=== PATIENT | male | born 1990 ===

== ENCOUNTER 2024-03-28 09:34 | Emergency (ER) | payer BC ==
--- NOTE | 2024-03-28 09:44 | ERPHSYRPT ---
- History of Present Illness Time Seen by Provider: 03/28/24 09:44 Historian: patient, family Exam Limitations: no limitations Physician History: This is a 33-year-old white male patient who began having symptoms of right flank pain and pain into his right lower quadrant 6 days ago. He was seen in the outpatient walk-in clinic where there was blood in his urine. He was placed on Bactrim DS and told to follow-up with the urologist if symptoms have not improved. This morning, his right flank pain and pain has now traveled into his right groin. He had nausea and a single episode of vomiting. Patient has had a history of ureterolithiasis in the past. Patient denies chest pain. Patient denies shortness of breath. Patient does not have diarrhea. He denies cough Timing/Duration: day(s) (6), worse Activities at Onset: none Quality: aching Abdominal Pain Onset Location: flank (Right) Pain Radiation: groin (Right flank right groin) Severity of Pain-Max: moderate Severity of Pain-Current: moderate Modifying Factors: Improves With: vomiting (Once in the emergency department) Associated Symptoms: loss of appetite, nausea, vomiting (In the emergency department) Previous symptoms: same symptoms as today, recently seen, recently treated Home Medications: Duloxetine HCl 20 mg PO DAILY 03/28/24 [History] Travel Risk - International Travel Have you traveled outside of the country in past 3 weeks: No - Emerging Infectious Disease Are you exhibiting symptoms associated with any current EIDs: No - Review of Systems Constitutional: No Symptoms Eyes: No Symptoms Ears, Nose, & Throat: No Symptoms Respiratory: No Symptoms Cardiac: No Symptoms Abdominal/Gastrointestinal: Nausea, Vomiting Genitourinary Symptoms: Flank Pain (Right flank pain) Musculoskeletal: No Symptoms Skin: No Symptoms Neurological: No Symptoms Psychological: No Symptoms Endocrine: No Symptoms Hematologic/Lymphatic: No Symptoms Immunological/Allergic: No Symptoms All Other Systems: Reviewed and Negative - Past Medical History Pertinent Past Medical History: Yes - Past Surgical History Past Surgical History: Yes - Nursing Vital Signs Nursing Vital Signs: Initial Vital Signs Temperature 98.1 F 03/28/24 09:59 Pulse Rate 69 03/28/24 09:59 Respiratory Rate 16 03/28/24 09:59 O2 Sat by Pulse Oximetry 100 03/28/24 09:59 Pain Scale Pain Intensity 3 - Physical Exam General Appearance: mild distress, alert, anxiety, thin Eye Exam: PERRL/EOMI Ears, Nose, Throat Exam: normal ENT inspection, moist mucous membranes Neck Exam: normal inspection, non-tender, supple, full range of motion Respiratory Exam: normal breath sounds, lungs clear, airway intact, No chest tenderness, No respiratory distress Cardiovascular Exam: regular rate/rhythm, normal heart sounds, normal peripheral pulses Gastrointestinal/Abdomen Exam: soft, normal bowel sounds, No tenderness Rectal Exam: not done Back Exam: normal inspection, normal range of motion, No CVA tenderness, No vertebral tenderness Extremity Exam: normal inspection, normal range of motion, pelvis stable Neurologic Exam: alert, oriented x 3, cooperative, clinical informatics manager II-XII nml as tested, nml cerebellar function, nml station & gait, sensation nml Skin Exam: normal color, warm, dry Lymphatic Exam: No adenopathy SpO2 Interpretation: normal O2 Delivery: Room Air - Course Nursing assessment & vital signs reviewed: Yes Ordered Tests: Active Orders 24 hr Category Date Time Status IV Insertion STAT Care 03/28/24 10:19 Active ABDOMEN AND PELVIS W/0 CONTRAS [CT] Stat Exams 03/28/24 10:20 Completed AMYLASE Stat Lab 03/28/24 10:20 Completed CBC W DIFF Stat Lab 03/28/24 10:20 Completed CMP Stat Lab 03/28/24 10:20 Completed CULTURE,URINE Stat Lab 03/28/24 11:35 Received LIPASE Stat Lab 03/28/24 10:20 Completed UA W/RFX UR CULTURE Stat Lab 03/28/24 11:35 Completed Medication Summary Discontinued Medications Generic Name Dose Route Start Last Admin Trade Name Lucila PRN Reason Stop Dose Admin Hydromorphone HCl 1 mg 03/28/24 10:19 03/28/24 10:34 Hydromorphone 1 Mg/1ml Inj IV 03/28/24 10:20 1 mg STAT ONE Administration Hydromorphone HCl Confirm 03/28/24 10:30 Hydromorphone 1 Mg/1ml Inj Administered 03/28/24 10:31 Dose 1 mg .ROUTE .STK-MED ONE Sodium Chloride 1,000 mls @ 999 mls/hr 03/28/24 10:19 03/28/24 11:40 Sodium Chloride 0.9% 1000 Ml IV 03/28/24 11:19 Infused .Q1H1M STA Infusion Sodium Chloride Confirm 03/28/24 10:30 Sodium Chloride 0.9% 1000 Ml Administered 03/28/24 10:31 Dose 1,000 mls @ ud .ROUTE .STK-MED ONE Ketorolac Tromethamine 30 mg 03/28/24 10:19 03/28/24 10:35 Ketorolac Tromethamine 30 Mg/Ml Inj IV 03/28/24 10:20 30 mg STAT ONE Administration Ketorolac Tromethamine Confirm 03/28/24 10:30 Ketorolac Tromethamine 30 Mg/Ml Inj Administered 03/28/24 10:31 Dose 30 mg .ROUTE .STK-MED ONE Ondansetron HCl 4 mg 03/28/24 10:19 03/28/24 10:34 Ondansetron Hcl 4 Mg/2 Ml Vial IV 03/28/24 10:20 4 mg STAT ONE Administration Ondansetron HCl Confirm 03/28/24 10:30 Ondansetron Hcl 4 Mg/2 Ml Vial Administered 03/28/24 10:31 Dose 4 mg .ROUTE .STK-MED ONE Tamsulosin HCl 0.4 mg 03/28/24 12:30 03/28/24 12:34 Tamsulosin Hcl 0.4 Mg Cap PO 03/28/24 12:31 0.4 mg STAT ONE Administration Tamsulosin HCl Confirm 03/28/24 12:34 Tamsulosin Hcl 0.4 Mg Cap Administered 03/28/24 12:35 Dose 0.4 mg .ROUTE .STK-MED ONE Lab/Rad Data: Laboratory Result Diagrams 03/28/24 10:20 03/28/24 10:20 Laboratory Results 03/28/24 03/28/24 03/28/24 Range/Units 11:35 10:20 10:20 WBC 6.1 (4.0-10.5) x10^3/uL RBC 4.71 (4.1-5.6) x10^6/uL Hgb 14.7 (12.5-18.0) g/dL Hct 43.9 (42-50) % MCV 93.2 (78-100) fL MCH 31.2 (26-32) pg MCHC 33.5 (32-36) g/dL RDW 12.8 (11.5-14.0) % Plt Count 269 (150-450) x10^3/uL MPV 9.4 (7.5-11.0) fL Gran % 64.7 (36.0-66.0) % Immature Gran % (Auto) 0.3 (0.00-0.4) % Nucleat RBC Rel Count 0.0 (0.00-0.1) % Eos # (Auto) 0.28 (0-0.5) x10^3/uL Immature Gran # (Auto) 0.02 (0.00-0.03) x10^3u/L Absolute Lymphs (auto) 1.23 (1.0-4.6) x10^3/uL Absolute Monos (auto) 0.58 (0.0-1.3) x10^3/uL Absolute Nucleated RBC 0.00 (0.00-0.01) x10^3u/L Lymphocytes % 20.2 L (24.0-44.0) % Monocytes % 9.5 (0.0-12.0) % Eosinophils % 4.6 (0.00-5.0) % Basophils % 0.7 (0.0-0.4) % Absolute Granulocytes 3.93 (1.4-6.9) x10^3/uL Basophils # 0.04 (0-0.4) x10^3/uL Sodium 140 (135-145) mmol/L Potassium 4.7 (3.5-5.1) mmol/L Chloride 105 (98-107) mmol/L Carbon Dioxide 27 (22-30) mmol/L Anion Gap 12.2 (5-15) MEQ/L BUN 12 (9-20) mg/dL Creatinine 1.00 (0.66-1.25) mg/dL Estimated GFR 103.2 ML/MIN Glucose 98 (74-106) mg/dL Calcium 9.6 (8.4-10.2) mg/dL Total Bilirubin 1.10 (0.2-1.3) mg/dL AST 405 H (17-59) U/L ALT 324 H (0-50) U/L Alkaline Phosphatase 70 (38-126) U/L Serum Total Protein 7.5 (6.3-8.2) g/dL Albumin 4.9 (3.5-5.0) g/dL Amylase 156 H (30-110) U/L Lipase 107 (23-300) U/L Urine Color Yellow (Yellow) Urine Appearance Clear (Clear) Urine pH 7.0 (4.6-8.0) Ur Specific [place] 1.020 (1.005-1.030) Urine Protein Negative (Negative) Urine Glucose (UA) Negative (Negative) mg/dL Urine Ketones Negative (Negative) Urine Blood Small A (Negative) Urine Nitrite Negative (Negative) Urine Bilirubin Negative (Negative) Urine Urobilinogen 1.0 A (0.2) mg/dL Ur Leukocyte Esterase Small A (Negative) U Hyaline Cast (Auto) NONE SEEN (0-2) /LPF Urine Microscopic RBC 21-50 A (0-5) /HPF Urine Microscopic WBC 6-10 A (0-5) /HPF Ur Epithelial Cells None Seen (None Seen) /HPF Urine Bacteria None Seen (None Seen) /HPF Urine Culture Reflexed YES (NO) - Progress Progress: pain not gone completely, re-examined Progress Note: 03/28/24 10:51 My medical decision making and the assignment of moderate complexity to this patient's medical issue today is based on review of the patient's past medical history, review of the patient's medication list, review of patient drug allergy list, history present illness and physical findings on examination. The workup in this patient clued placement of intravenous line, infusion of Zofran, Dilau did, Toradol intravenously, CBC, CMP, amylase, lipase, urinalysis, CT scan of the abdomen pelvis without contrast. Differential diagnosis includes ureterolithiasis, diverticulitis, colitis, pyelonephritis, pancreatitis, appendicitis 03/28/24 12:31 I interpreted the patient's laboratory data results. The patient has hematuria as well as a mild urinary tract infection. We will remotely send a prescription of Keflex antibiotics to his pharmacy. The CT scan of the abdomen pelvis without contrast was interpreted by the radiologist and I reviewed the impression. Impression states bilateral nono bstructing renal calculi. There is a right lower ureter at calculus (2.5 mm) present approximately 2 cm proximal to the ureterovesical junction. There is no evidence of obstructive uropathy. There is evidence of sigmoid diverticulosis without diverticulitis. 03/28/24 12:33 Counseled pt/family regarding: lab results, diagnosis, need for follow-up, rad results Medical Desision Making - Independent Historian Additional History obtained from: Spouse - Diagnostic Testing Diagnostic test were ordered, analyzed, and reviewed by me: Yes Radiological Interpretation: Reviewed by me, Teleradiologist Report - Risk of complications The pt has a mod risk of morbidity or mortality based on: Need for prescription drug management - Departure Departure Disposition: Home Clinical Impression: Ureterolithiasis, UTI (urinary tract infection) Condition: Stable Critical Care Time: No Referrals: DOCTOR,NO FAMILY [Primary Care Provider] - Follow up/PCP as directed Additional Instructions: Drink plenty of fluids. Take 600 mg ibuprofen 3 times a day with food for the next 5 days. Take your other prescribed medications as prescribed. If you have persistent pain or worsening pain, proceed to an emergency department where there is urology on staff. You may always come to our emergency department if needed. Prescriptions: Hydrocodone/APAP 5/325 [[place] 5/325 mg] 1 each PO Q6H PRN PRN #10 tablet MDD 4 PRN Reason: Pain Ondansetron ODT 4 MG [Zofran Odt 4 mg] 4 mg PO Q6H PRN PRN #10 tablet PRN Reason: Vomiting Tamsulosin HCl 0.4 mg [Flomax 0.4 MG] 0.4 mg PO DAILY #7 cap Cephalexin Mh 500 mg [Keflex 500 mg] 500 mg PO TID #21 cap
[2024-03-28 10:07] VITALS: RESP 16; TEMP 98.1; O2SAT 100
[2024-03-28] MEDS ORDERED: Sodium Chloride 0.9% 1000 ML 1,000 ML ONE (10:30)
[2024-03-28] MEDS ORDERED: TORAdol 30 mg Injection ONE (10:30)
[2024-03-28] MEDS ORDERED: Zofran 4 MG/2 ML VIAL ONE (10:30)
[2024-03-28] MEDS ORDERED: Hydromorphone 1 mg/ml Injection ONE (10:30)
[2024-03-28] MEDS: Sodium Chloride 0.9% 1000 ML 1,000 ML IV STA (10:32)
[2024-03-28 10:33] LABS: Absolute Neutrophil Ct (ANC) 3.93 x10^3/uL (1.4-6.9); BASOPHIL % 0.7 % (0.0-0.4); Basophil (Absolute #) 0.04 x10^3/uL (0-0.4); Eosinophil % 4.6 % (0.00-5.0); Eosinophil (Absolute #) 0.28 x10^3/uL (0-0.5); Hematocrit 43.9 % (42-50); Hemoglobin 14.7 g/dL (12.5-18.0); IMMATURE GRAN # 0.02 x10^3u/L (0.00-0.03); IMMATURE GRAN % 0.3 % (0.00-0.4); Lymphocyte (Absolute #) 1.23 x10^3/uL (1.0-4.6); Lymphocytes % 20.2 % (24.0-44.0); Mean Cell Volume 93.2 fL (78-100); Mean Corpuscular Hemoglobin 31.2 pg (26-32); Mean Corpuscular Hgb Concent. 33.5 g/dL (32-36); Mean Platelet Volume 9.4 fL (7.5-11.0); Monocyte (Absolute #) 0.58 x10^3/uL (0.0-1.3); Monocytes % 9.5 % (0.0-12.0); Neutrophil % 64.7 % (36.0-66.0); Platelet Count 269 x10^3/uL (150-450); Red Blood Count 4.71 x10^6/uL (4.1-5.6); Red Cell Distribution Width 12.8 % (11.5-14.0); White Blood Count 6.1 x10^3/uL (4.0-10.5)
[2024-03-28] MEDS: Hydromorphone 1 mg/ml Injection IV ONE (10:34)
[2024-03-28] MEDS: Zofran 4 MG/2 ML VIAL IV ONE (10:34)
[2024-03-28] MEDS: TORAdol 30 mg Injection IV ONE (10:35)
[2024-03-28 10:44] LABS: ALBUMIN 4.9 g/dL (3.5-5.0); ANION GAP 12.2 MEQ/L (5-15); BILIRUBIN,TOTAL 1.1 mg/dL (0.2-1.3); Calcium 9.6 mg/dL (8.4-10.2); EST GLOMERULAR FILTRATION RATE 103.2 ML/MIN; Potassium 4.7 mmol/L (3.5-5.1); Total Protein 7.5 g/dL (6.3-8.2)
[2024-03-28 11:56] LABS: Appearance Clear (Clear); Bacteria None Seen /HPF (None Seen); Bilirubin Negative (Negative); Blood Small (Negative); Epithelial Cells None Seen /HPF (None Seen); Glucose, Urine Negative (Negative); Hyaline Casts NONE SEEN /LPF (0-2); Ketones Negative (Negative); Leukocyte Esterase Small (Negative); Nitrite Negative (Negative); Protein,Urine Dip Negative (Negative); RBC 21-50 /HPF (0-5)
[2024-03-28 11:58] LABS: ADD URINE CULTURE? YES (NO)
--- NOTE | 2024-03-28 12:00 | XRAY ---
CLINICAL HISTORY: Right flank pain COMPARISON: None TECHNIQUE: CT scan of the abdomen and pelvis was performed without IV contrast. Coronal and sagittal images obtained. Bowel loops are opacified by prior administration of oral contrast. DLP 307.43 mGy*cm One of the following dose reduction techniques were utilized for this exam: Automated exposure control, adjustment of the mA and/or kV according to patient size, use of iterative reconstruction. FINDINGS: Both kidneys are normal in size, shape and orientation. Right lower and left middle and lower calyceal tiny dense renal calculi are seen measuring 1-3 mm, with density reaching 270 HU. No cyst mass or hydronephrosis seen on either side. Right lower ureteric 2.5 mm calculus, with density 390 HU, is seen about 2 cm proximal to the ureterovesical junction. Both ureters and urinary bladder appear normal. Liver is enlarged size (20 cm), with preserved shape and regular margins. No focal or diffuse parenchymal abnormality. No hepatic mass is identified. The portal vein, intrahepatic biliary radicals and the bile ducts are normal. Gall bladder appears normal with wall thickness. No radio-opaque calculus or pericholecystic fluid was identified. Common bile duct appears normal. Pancreas appears normal. No peripancreatic fat stranding, pancreatic pseudocyst or peripancreatic fluid collection. Spleen normal in size, no mass seen. Both adrenal glands are unremarkable. Stomach and small bowel loops are unremarkable. The caecum, appendix and ileocecal junction appear normal. Large bowel loops appear normal without evidence of bowel obstruction. Multiple mainly sigmoid colonic diverticulosis with no evidence of diverticulitis. The rectum appears normal. No free peritoneal fluid or air. No evidence of significant enlargement of the mesenteric or retroperitoneal lymph nodes. Visualized thoracic and lumbar spine appear normal. No lytic or sclerotic bone lesions in visualized bones. IMPRESSION: Bilateral nonobstructive renal and right lower ureteric calculi, with no back-pressure changes. Hepatomegaly (20 cm). Multiple mainly sigmoid colonic diverticulosis with no evidence of diverticulitis. Electronically Signed by: Norman Soriano MD. (03/28/2024 11:56:54 EDT)
[2024-03-28 12:09] VITALS: BP 99/56; PULSE 54
[2024-03-28] MEDS ORDERED: Flomax 0.4 MG ONE (12:34)
[2024-03-28] MEDS: Flomax 0.4 MG PO ONE (12:34)
== END 2024-03-28 12:58 | disposition home or self-care (01) ==
LOC: ED 09:34
DX: N20.1 Calculus of ureter (principal); N39.0 Urinary tract infection, site not specified; R10.31 Right lower quadrant pain; R11.2 Nausea with vomiting, unspecified; Z87.442 Personal history of urinary calculi; Z79.891 Long term (current) use of opiate analgesic
CPT/HCPCS: 36000; 36415; 74176; 80053; 81001; 82150; 83690; 85025; 87086; 96360; 96374; 99284; J1170; J1885; J2405; A9270-GY